=== PATIENT | male | born 1980 | race Two or more races ===

== ENCOUNTER 2021-04-26 22:52 | Emergency (ER) | payer OTHER ==
[~2021-04-26] VITALS: Ht 182.9 cm; Wt 108.9 kg
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
--- NOTE | 2021-04-26 23:10 | NUR ---
RAD AT BEDSIDE
[2021-04-26] MEDS ORDERED: IBUPROFEN 400 MG TABLET ONE (23:30)
[2021-04-26] MEDS ORDERED: IBUPROFEN 400 MG TABLET PO ONE (23:30)
[2021-04-27 01:12] VITALS: BP 129/70
== END 2021-04-27 01:05 | disposition home or self-care (01) ==
LOC: ER 23:05
DX: S00.83XA Contusion of other part of head, initial encounter (principal); R51.9 Headache, unspecified; M54.50 Low back pain, unspecified; R07.89 Other chest pain; Z88.8 Allergy status to other drugs, medicaments and biological substances; Z59.00 Homelessness unspecified; Y04.8XXA Assault by other bodily force, initial encounter; Y93.89 Activity, other specified; Y92.89 Other specified places as the place of occurrence of the external cause; Y99.8 Other external cause status
CPT/HCPCS: 70486-TC; 71045-TC; 72100-TC